=== PATIENT | male | born 1990 | race Caucasian/White ===

== ENCOUNTER 2018-03-06 22:44 | Emergency (ER) | payer SELFPAY ==
[2018-03-06 22:47] VITALS: BP 145/71; PULSE 60; TEMP 98; BMI 24.2
[2018-03-07] MEDS ORDERED: ASPIRIN 81 MG CHEWABLE TABLETS PO ONE (00:19)
--- NOTE | 2018-03-07 00:19 | PDOC ---
History of Present Illness - General Chief Complaint: Chest Pain Stated Complaint: DIFF. BREATHING,CHEST PRESSURE Time Seen by Provider: 03/07/18 00:10 History Source: Patient, Friend, Healthcare Administrator Used Exam Limitations: Language Barrier - History of Present Illness Presenting Symptoms: Chest Pain Timing/Duration: reports: constant Severity/Quality: reports: mild Location: reports: other (left sided) Chest Pain Radiation: reports: no radiation Activities at Onset: reports: none Prior Chest Pain/Cardiac Workup: reports: No prior chest pain Nitro Today/Relief: Yes: no nitro taken today Aspirin Received prior to arrival (Core Measure): Yes: 81 mg x 1, provided by ED Beta Cindi given by EMS (Core Measure): No (not indicated) Associated Symptoms: Yes: Shortness of Breath Past History - Past Medical History Allergies/Adverse Reactions: Allergies Allergy/AdvReac Type Severity Reaction Status Date / Time No Known Allergies Allergy Verified 03/06/18 22:47 COPD: No HTN: Yes - Suicide/Smoking/Psychosocial Hx Smoking History: Never smoked Review of Systems - Review of Systems Able to Perform ROS?: Yes Is the patient limited Latvian proficient: Yes Constitutional: Yes: Other (fatigue) Respiratory: Yes: Shortness of Breath Cardiac (ROS): Yes: Chest Pain ABD/GI: No: Symptoms Reported, See HPI, Abdominal Distended, Abd. Pain w/ defecation, Blood Streaked Bowels, Constipated, Diarrhea, Difficulty Swallowing , Nausea, Poor Appetite, Poor Fluid Intake, Rectal Bleeding, Vomiting, Indigestion, Abdominal cramping, Tarry Stools, Other : No: Symptoms Reported, See HPI, Burning, Dysuria, Discharge, Frequency, Flank Pain, Hematuria, Incontinence, Pain, Urgency, Testicular Mass, Testicular Swelling, Lesions, Testicular Pain, Other Musculoskeletal: No: Symptoms Reported, See HPI, Back Pain, Gout, Joint Pain, Joint Swelling, Muscle Pain, Muscle Weakness, Neck Pain, Joint Stiffness, Other Integumentary: No: Symptoms Reported, See HPI, Bruising, Change in Color, Change in Hair/Nails, Dryness, Erythema, Flushing, Lesions, Lumps, Pallor, Pruritus, Rash, Sweating, Other Neurological: Yes: Headache Psychiatric: Yes: Anxiety Endocrine: No: Symptoms Reported, See HPI, Excessive Sweating, Flushing, Intolerance to Cold, Intolerance to Heat, Increased Hunger, Increased Thirst, Increased Urine, Unexplained Weight Gain, Unexplained Weight Loss, Change in Weight, Other Hematologic/Lymphatic: No: Symptoms Reported, See HPI, Anemia, Blood Clots, Easy Bleeding, Easy Bruising, Bleeding Diathesis, Lymph Node Abnormalities, Swollen Glands, Other *Physical Exam - Vital Signs Last Vital Signs Temp Pulse Resp BP Pulse Ox 98.0 F 60 18 145/71 100 03/06/18 22:45 03/06/18 22:45 03/06/18 22:45 03/06/18 22:45 03/06/18 22:45 - Physical Exam General Appearance: Yes: Nourished HEENT: positive: Normal Voice Neck: positive: Supple Respiratory/Chest: positive: Lungs Clear Cardiovascular: positive: Regular Rhythm, Bradycardia Gastrointestinal/Abdominal: positive: Soft Musculoskeletal: positive: Normal Inspection Extremity: positive: Normal Inspection, Normal Range of Motion Integumentary: positive: Normal Color, Warm Neurologic: positive: Fully Oriented, Alert, Normal Response, Motor Strength 5/5 Heart Score/ECG Review - Electrocardiogram EKG: Normal - Age Age: </= 45 - Risk Factors Based on the list above the patient has:: No risk factors known - Troponin Troponin: </= normal limit - ECG Intrepretation Rhythm: Regular Rhythm - P and TX Delta Wave(s) Present: No WPW: No - ECG Impressions Normal ECG: Yes Ischemic Changes: No Bradycardia: Yes Torsades latoya Pointes: No WPW: No ED Treatment Course - LABORATORY CBC & Chemistry Diagram: 03/07/18 00:43 03/07/18 00:43 - ADDITIONAL ORDERS Additional order review: Laboratory Results 03/07/18 03/07/18 00:43 00:43 PT with INR 12.80 INR 1.08 Sodium 140 Potassium 3.8 Chloride 104 Carbon Dioxide 27 Anion Gap 9 BUN 15 Creatinine 1.1 Creat Clearance w eGFR > 60 Random Glucose 86 Calcium 8.7 Magnesium 2.5 H Total Bilirubin 0.5 AST 13 L ALT 26 Alkaline Phosphatase 70 Creatine Kinase 100 Troponin I 0.02 Total Protein 7.6 Albumin 4.0 03/07/18 00:43 RBC 4.41 MCV 91.5 MCHC 34.6 RDW 13.5 MPV 7.4 L Neutrophils % 48.4 Lymphocytes % 39.3 Monocytes % 7.2 Eosinophils % 4.0 Basophils % 1.1 - RADIOLOGY Radiology Studies Ordered: Category Date Time Status CHEST PA & LAT [RAD] Stat Radiology 03/07/18 00:19 Taken - Medications Given in the ED: ED Medications Discontinued Medications Generic Name Dose Route Start Last Admin Trade Name Dick PRN Reason Stop Dose Admin Aspirin 162 mg 03/07/18 00:19 03/07/18 01:07 Asa - PO 03/07/18 00:20 162 mg ONCE ONE Administration Medical Decision Making - Medical Decision Making 03/07/18 01:50 27-year-old male presents with left-sided chest pain as been constant since Monday. Review of systems positive for headache, chest pain, fatigue, shortness of breath, dizziness and anxiety. Past surgical history none Past medical history none Social history :he works in construction, occasionally drinks beer On exam, his lungs are clear, regular rate and rhythm with no rubs, murmurs or gallops, ambulatory, alert and oriented 3, no ataxia, no gross focal neural deficits
[2018-03-07 00:54] LABS: BASO % 1.1 % (0-2.0); HEMATOCRIT 40.4 % (35.4-49); LYMPH % 39.3 % (8-40); MCH 31.6 pg (25.7-33.7); MCHC 34.6 g/dl (32.0-35.9); MEAN CELL VOLUME 91.5 fl (80-96); MEAN PLT VOLUME 7.4 fl (7.5-11.1); MONO % 7.2 % (3.8-10.2); NEUT % 48.4 % (42.8-82.8); PLATELET COUNT 312 K/MM3 (134-434); RBC 4.41 M/mm3 (4.00-5.60); RDW 13.5 % (11.9-15.9); WHITE BLOOD COUNT 9.5 K/mm3 (4.0-10.0)
[2018-03-07 01:03] LABS: INR 1.08 (0.83-1.09); PROTHROMBIN TIME (PATIENT) 12.8 SEC (9.7-13.0)
[2018-03-07] MEDS ORDERED: ASPIRIN 81 MG CHEWABLE TABLETS ONE (01:05)
[2018-03-07 01:15] LABS: ALK PHOS 70 U/L (45-117); ANION GAP 9 MMOL/L (8-16); BILIRUBIN,TOTAL 0.5 mg/dL (0.2-1); BLOOD UREA NITROGEN 15 mg/dL (7-18); CALCIUM 8.7 mg/dL (8.5-10.1); CHLORIDE 104 mmol/L (98-107); CO2 27 mmol/L (21-32); CREATININE 1.1 mg/dL (0.55-1.3); GLUCOSE,RANDOM 86 mg/dL (74-106); MAGNESIUM 2.5 mg/dL (1.8-2.4); POTASSIUM 3.8 mmol/L (3.5-5.1); SGOT/AST 13 U/L (15-37); SGPT/ALT 26 U/L (13-61); SODIUM 140 mmol/L (136-145); TOT PROT 7.6 g/dl (6.4-8.2)
[2018-03-07] MEDS ORDERED: MAG HYDROX/AL HYDROX/SIMETH 30 ML UNIT-DOSE CUP PO STA (01:31)
[2018-03-07] MEDS ORDERED: ACETAMINOPHEN 325 MG TABLET (FP) PO ONE (01:57)
[2018-03-07] MEDS ORDERED: ACETAMINOPHEN 325 MG TABLET (FP) ONE (02:28)
[2018-03-07] MEDS ORDERED: MAG HYDROX/AL HYDROX/SIMETH 30 ML UNIT-DOSE CUP ONE (02:28)
--- NOTE | 2018-03-07 06:02 | PDOC ---
*Physical Exam - Vital Signs Last Vital Signs Temp Pulse Resp BP Pulse Ox 98.0 F 60 18 145/71 100 03/06/18 22:45 03/06/18 22:45 03/06/18 22:45 03/06/18 22:45 03/06/18 22:45 ED Treatment Course - LABORATORY CBC & Chemistry Diagram: 03/07/18 00:43 03/07/18 00:43 - ADDITIONAL ORDERS Additional order review: Laboratory Results 03/07/18 03/07/18 03/07/18 04:40 00:43 00:43 PT with INR 12.80 INR 1.08 Sodium 140 Potassium 3.8 Chloride 104 Carbon Dioxide 27 Anion Gap 9 BUN 15 Creatinine 1.1 Creat Clearance w eGFR > 60 Random Glucose 86 Calcium 8.7 Magnesium 2.5 H Total Bilirubin 0.5 AST 13 L ALT 26 Alkaline Phosphatase 70 Creatine Kinase 100 Troponin I 0.02 0.02 Total Protein 7.6 Albumin 4.0 03/07/18 00:43 RBC 4.41 MCV 91.5 MCHC 34.6 RDW 13.5 MPV 7.4 L Neutrophils % 48.4 Lymphocytes % 39.3 Monocytes % 7.2 Eosinophils % 4.0 Basophils % 1.1 - Medications Given in the ED: ED Medications Discontinued Medications Generic Name Dose Route Start Last Admin Trade Name Dick PRN Reason Stop Dose Admin Acetaminophen 650 mg 03/07/18 01:57 03/07/18 02:34 Tylenol - PO 03/07/18 01:58 650 mg ONCE ONE Administration Al Hydroxide/Mg Hydroxide 30 ml 03/07/18 01:31 03/07/18 02:34 Mylanta Oral Suspension - PO 03/07/18 01:32 30 ml ONCE STA Administration Aspirin 162 mg 03/07/18 00:19 03/07/18 01:07 Asa - PO 03/07/18 00:20 162 mg ONCE ONE Administration Medical Decision Making - Medical Decision Making 03/07/18 06:01 Sign-out received from outgoing Emergency Physician Dr. Amaral, Pt interviewed and examined Ancillary studies reviewed Case discussed in detail with oncoming Emergency Physician including history, physical exam and ancillary studies. ECG from 0:27 today showed NSR 48, no std/yessica, QTC 384 msec, normal axis, normal intervals. Chest xray reviewed by me, pending official radiology read. No acute findings. Labs reviewed. Two negative troponins. 03/07/18 06:10 I had spoken with the patient. He has been reporting intermittent chest discomfort and intermittent palpitations. However, the patient now reports that he feels well. The patient has 2 negative troponins normal EKG. The patient can be discharged and follow-up as an outpatient with cardiology. The patient is also requesting a primary care physician. We'll coordinate appointment for next week with the internal medicine clinic. Return precautions given. I discussed the physical exam findings, ancillary test results and final diagnoses with the patient. I answered all of the patient's questions. The patient was satisfied with the care received and felt comfortable with the discharge plan and treatment plan. The patient will call their primary care physician within 24 hours to arrange follow-up and will return to the Emergency Department with any new, persistant or worsening symptoms. *DC/Admit/Observation/Transfer Diagnosis at time of Disposition: Atypical chest pain - Referrals Referrals: Richar Rascon MD [Staff Physician] - Viviana Galeana MD [Staff Physician] - - Patient Instructions Printed Discharge Instructions: DI for Atypical Chest Pain Additional Instructions: Your workup is unremarkable here in the ER. This includes a normal EKG and two negative troponins. Please follow up with a primary care physician. You will see Dr. Viviana Ortiz at 10 am on March 13. Follow up with a aquatic centre manager. Print Language: MONTSERRATIAN - Post Discharge Activity
--- NOTE | 2018-03-07 15:40 | EKG ---
Test Reason : Blood Pressure : / mmHG Vent. Rate : 048 BPM Atrial Rate : 048 BPM P-R Int : 144 ms QRS Dur : 102 ms QT Int : 430 ms P-R-T Axes : 033 066 050 degrees QTc Int : 384 ms SINUS BRADYCARDIA OTHERWISE NORMAL ECG NO PREVIOUS ECGS AVAILABLE Confirmed by KYRA BOTELLO MD ([id number]) on 03/07/2018 3:39:58 PM Referred By: Confirmed By:KYRA BOTELLO MD
== END 2018-03-07 06:54 | disposition home or self-care (01) ==
LOC: JER 22:44
DX: R07.89 Other chest pain (principal)
CPT/HCPCS: 36415; 71046-TC-FY; 80053; 82550; 83735; 84484; 85025; 85610; 93005; 93010; 99282-25

== ENCOUNTER 2019-10-16 21:59 | Emergency (ER) | payer OTHER ==
[2019-10-16 22:08] VITALS: BMI 20.9
[2019-10-16] MEDS ORDERED: KETOROLAC TROMETHAMINE 60 MG/2 ML VIAL IM ONE (22:15)
--- NOTE | 2019-10-16 22:33 | PDOC ---
History of Present Illness - General Chief Complaint: Chest Pain Stated Complaint: SENT BY DOC Time Seen by Provider: 10/16/19 22:14 - History of Present Illness Initial Comments: 10/16/19 22:31 29-year-old male without comorbidities presents for evaluation of chest pain x10 days worsened with activity without systemic symptoms or radiation of symptoms Past History - Medical History Allergies/Adverse Reactions: Allergies Allergy/AdvReac Type Severity Reaction Status Date / Time No Known Allergies Allergy Verified 10/16/19 22:03 Home Medications: Ambulatory Orders Azithromycin [Zithromax -] 250 mg PO UTDICT #6 tab 07/22/19 Guaifenesin Dm [Mucinex Dm -] 1 tab PO BID #60 tab.er.12h 07/22/19 COPD: No HTN: Yes - Psycho-Social/Smoking History Smoking History: Never smoked - Substance Abuse Hx (Audit-C & DAST Scrn) How often the patient has a drink containing alcohol: Never Score: In Men: 4 or > Positive; In Women: 3 or > Positive: 0 Screen Result (Pos requires Nsg. Audit-10AR): Negative In the last yr the pt used illegal drug/Rx for NonMed reason: No Score: Yes response is considered Positive: 0 Screen Result (Positive result requires Nsg. DAST-10): Negative Review of Systems - Review of Systems Cardiac (ROS): Yes: Chest Pain *Physical Exam - Vital Signs Last Vital Signs Temp Pulse Resp BP Pulse Ox 98.5 F 64 18 135/73 96 10/16/19 22:00 10/16/19 22:00 10/16/19 22:00 10/16/19 22:00 10/16/19 22:00 - Physical Exam 10/16/19 22:32 GENERAL: The patient is awake, alert, and fully oriented, in no acute distress. HEAD: Normal with no signs of trauma. EYES: sclera anicteric, conjunctiva clear. ENT: Ears normal tympanic membranes normal oropharynx clear uvula midline NECK: Normal range of motion LUNGS: Breath sounds equal, clear to auscultation bilaterally. No wheezes, and no crackles.Tender at the left costochondral junction in the areas of ribs 4 and 5 HEART: S1 and S2 without murmur, rub or gallop. ABDOMEN: Soft, nontender, normoactive bowel sounds. No guarding, no rebound. No masses. EXTREMITIES: Normal range of motion, no edema. No clubbing or cyanosis. No cords, erythema, or tenderness. NEUROLOGICAL: Cranial nerves II through XII grossly intact. PSYCH: Normal mood, normal affect. SKIN: Warm, Dry, normal turgor, no rashes or lesions noted. ED Treatment Course - RADIOLOGY Radiology Studies Ordered: Category Date Time Status CHEST PA & LAT [RAD] Stat Radiology 10/16/19 22:15 Taken Medical Decision Making - Medical Decision Making 10/16/19 22:32 Normal chest x-ray and EKG reviewed with attending costochondritis reproducible chest pain Toradol in the emergency room Tylenol and Motrin at home follow-up with internal medicine in 1 to 2 days I have reviewed the pathophysiology with the patient. They are in agreement with the treatment plan all questions were answered to their satisfaction. Understanding for follow-up without fail was also conveyed to the patient. Again they are in agreement. Discharge - Discharge Information Problems reviewed: Yes Clinical Impression/Diagnosis: Atypical chest pain, Costochondritis Condition: Stable Disposition: HOME - Admission No - Follow up/Referral Referrals: Iggy Romero MD [Staff Physician] - - Patient Discharge Instructions Additional Instructions: Return to the emergency room for worsening symptoms and without fail follow-up with internal medicine in 1 to 2 days for further evaluation and treatment options. Tylenol and Motrin as directed for pain. Of note you were given a long-acting injection of an anti-inflammatory in the emergency room today please start the anti-inflammatory medication tomorrow. You may take Tylenol tonight if you require additional pain medication. - Post Discharge Activity
[2019-10-16] MEDS ORDERED: KETOROLAC TROMETHAMINE 60 MG/2 ML VIAL ONE (22:36)
[2019-10-16 22:57] VITALS: BP 123/76; PULSE 63; TEMP 98.1
--- NOTE | 2019-10-20 14:21 | EKG ---
Test Reason : Blood Pressure : / mmHG Vent. Rate : 058 BPM Atrial Rate : 058 BPM P-R Int : 140 ms QRS Dur : 092 ms QT Int : 406 ms P-R-T Axes : 028 058 046 degrees QTc Int : 398 ms SINUS BRADYCARDIA OTHERWISE NORMAL ECG WHEN COMPARED WITH ECG OF 07-MAR-2018 00:27, NO SIGNIFICANT CHANGE WAS FOUND Confirmed by ERMA OBANDO MD ([id number]) on 10/20/2019 2:20:32 PM Referred By: Confirmed By:ERMA OBANDO MD
== END 2019-10-16 22:58 | disposition home or self-care (01) ==
LOC: JER 21:59
PROC: 3E023GC Introduction of Other Therapeutic Substance into Muscle, Percutaneous Approach (ICD-10-PCS; principal; 2019-10-16)
DX: M94.0 Chondrocostal junction syndrome [Tietze] (principal)
CPT/HCPCS: 71046-TC-FY; 93005; 93010; 99284-25